=== PATIENT | female | born 1990 | race Caucasian/White ===

== ENCOUNTER 2017-04-10 22:19 | Inpatient (IN) | payer BC, OTHER ==
[~2017-04-10] VITALS: Ht 165.1 cm; Wt 52.0 kg
[2017-04-10 23:02] LABS: MEAN CORPUSCULAR HEMOGLOBIN 29.6 pg (27.0-33.0); MEAN CORPUSCULAR HGB CONC 33.6 g/dl (32.0-36.5); MEAN CORPUSCULAR VOLUME 88.2 fl (80.0-96.0); RED CELL DISTRIBUTION WIDTH 11.9 % (11.5-14.5); WHITE BLOOD COUNT 8.3 10^3/uL (4.0-10.0)
[2017-04-10 23:13] LABS: CONTROL LINE HCG INT CTR LINE PRESENT
[2017-04-10 23:18] LABS: METHADONE URINE NEGATIVE (NEGATIVE)
[2017-04-10 23:29] LABS: ALBUMIN 3.8 GM/DL (3.2-5.2); ALBUMIN/GLOBULIN RATIO 1.15 (1.00-1.93); ALKALINE PHOSPHATASE 57 U/L (45-117); ALT/SGPT 17 U/L (12-78); ANION GAP 5 MEQ/L (8-16); AST/SGOT 9 U/L (15-37); BILIRUBIN,DIRECT 0.2 MG/DL (0.0-0.2); BILIRUBIN,TOTAL 0.5 MG/DL (0.2-1.0); BLOOD UREA NITROGEN 18 MG/DL (7-18); CALCIUM LEVEL 8.8 MG/DL (8.5-10.1); CARBON DIOXIDE LEVEL 34 MEQ/L (21-32); CHLORIDE LEVEL 100 MEQ/L (98-107); CREATININE FOR GFR 1.11 MG/DL (0.55-1.02); GLOMERULAR FILTRATION RATE > 60.0 (>60); GLUCOSE, FASTING 74 MG/DL (70-105); POTASSIUM SERUM 3.8 MEQ/L (3.5-5.1); SODIUM LEVEL 139 MEQ/L (136-145); TOTAL PROTEIN 7.1 GM/DL (6.4-8.2)
[2017-04-11] MEDS ORDERED: ACETAMINOPHEN TAB 650MG DOSE (2X325MG) PO PRN (01:00)
[2017-04-11] MEDS ORDERED: MAALOX 30 ML SUSP *UDC PO PRN (01:00)
[2017-04-11] MEDS ORDERED: MOM 30ML SUSPENSION UDC PO PRN (01:00)
[2017-04-11] MEDS: NICOTINE 21MG/24HR 1 EA TRANSDERMAL TD SCH (08:56)
--- NOTE | 2017-04-11 10:05 | HPEPDOC ---
[facility] Medical History & Physical Date of Admission Apr 10, 2017 History and Physical PCP: Dr Moore ATTENDING: Dr. Dixon Marquez HPI: 26yoF admitted to [facility] for polysubstance use, being medically examined today. No acute medical complaints today. Denies any fevers, chills, weakness, fatigue, SANTOYO, CP, SOB, cough, palpitations, abdominal pain, N/V/D or changes in bowel or bladder habits. PMHx: polysubstance use PSHX: tonsillectomy SOCHX: Resides in: [facility] Marital Status: single Kids: 2 Employment: unemployed Tobacco use: 07/05 ppd ETOH: denies Illicit Drugs: Pt states heroin, marijuana. IV Drug Use: Pt states heroin 5 bags per day Tattoos done unprofessionally: Denies FAMHX: Mother: Alive, DM Father: Alive, unknown Siblings: Alive, DM Children: Alive, well Unexpected deaths due to medical reasons: None. ROS: As noted in HPI, otherwise 11pt ROS of systems reviewed and remarkable only for LMP unknown. PE: GEN: 26yoF, appears stated age. Well-nourished, well developed. No acute distress. Alert and oriented x 3. Pleasant, interactive. HEENT: Normocephalic, atraumatic. Pupils are equal, round, and reactive to light. Extraocular movements are intact. No nystagmus appreciated. Sclera are nonicteric. Conjunctiva without injection. Nose midline. Nasal turbinates without bogginess. EACs both patent BL. TMs both visualized and hansen with good cone of light, no bulging or erythema. No facial asymmetry. Moist mucous membranes. Dentition fair. Pharynx pink and moist, no cobblestoning. Neck supple , trachea midline. No lymphadenopathy or thyromegaly appreciated. CHEST: Regular rate and rhythm, +S1, +S2 LUNGS: Clear to auscultation bilaterally. No wheezes, rales, or rhonchi. Breathing appears symmetric and easy. Patient is speaking in full sentences. No accessory muscle use. ABD: Round, soft, non-tender, non-distended. +Bowel sounds throughout. No rebound or guarding. No costovertebral angle tenderness. EXT: Pulses 2+ bilaterally dorsalis pedis and radial. No lower extremity edema appreciated. SKIN: [place], dry, warm. Capillary refill <2sec. No rashes. NEURO: Alert and oriented x 3. Cranial nerves III-XII are intact. No focal deficits appreciated. EKG: pending. A&P: 26yoF admitted to [facility] for polysubstance use 1. Psych. Plan per Psychiatry. Obtain baseline EKG to assure the safety of psychiatric medications as they can prolong the QT interval. 2. Nicotine dependence. Patch available. 3. H/O IVDU. Pt agrees to HIV/Hepatitis screening. 4. Follow up with PCP on discharge. 5. Substance use. Per psychiatry. Staff member Madyson VIVEROS present throughout exam. Vital Signs Vital Signs Date Time Temp Pulse Resp B/P (MAP) Pulse Ox O2 Delivery O2 Flow Rate FiO2 04/11/17 00:00 98.9 63 18 94/55 (68) 100 Room Air Laboratory Data Labs 24H Laboratory Tests 2 04/10/17 22:39: Anion Gap 5L, Glomerular Filtration Rate > 60.0, Calcium Level 8.8, Aspartate Amino Transf (AST/SGOT) 9L, Alanine Aminotransferase (ALT/SGPT) 17, Alkaline Phosphatase 57, Total Bilirubin 0.5, Direct Bilirubin 0.2, Total Protein 7.1, Albumin 3.8, Albumin/Globulin Ratio 1.15, Thyroid Stimulating Hormone (TSH) 0.657, Human Chorionic Gonadotropin, Qual NEGATIVE, Salicylates Level < 1.7L, Urine Amphetamines Screen POSITIVEH, Urine Benzodiazepines Screen NEGATIVE, Urine Opiates Screen POSITIVEH, Urine Methadone Screen NEGATIVE, Acetaminophen Level < 2.0L, Urine Barbiturates Screen NEGATIVE, Urine Phencyclidine Screen NEGATIVE, Urine Cocaine Metabolite Screen POSITIVEH, Urine Cannabinoids Screen POSITIVEH, Ethyl Alcohol Level < 0.003 CBC/BMP Laboratory Tests 04/10/17 22:39 Red Blood Count 5.17, Mean Corpuscular Volume 88.2, Mean Corpuscular Hemoglobin 29.6, Mean Corpuscular Hemoglobin Concent 33.6, Red Cell Distribution Width 11.9 Home Medications No Active Prescriptions or Reported Meds Allergies Uncoded Allergies: N (Allergy, Unknown, 01/07/03) PCN-HIVES (Allergy, Unknown, 01/07/03) Inés Calle Apr 11, 2017 10:05
[2017-04-11 11:17] LABS: ANION GAP 6 MEQ/L (8-16); BLOOD UREA NITROGEN 14 MG/DL (7-18); CALCIUM LEVEL 8.9 MG/DL (8.5-10.1); CARBON DIOXIDE LEVEL 31 MEQ/L (21-32); CHLORIDE LEVEL 102 MEQ/L (98-107); CREATININE FOR GFR 0.84 MG/DL (0.55-1.02); GLOMERULAR FILTRATION RATE > 60.0 (>60); GLUCOSE, FASTING 82 MG/DL (70-105); POTASSIUM SERUM 4.5 MEQ/L (3.5-5.1); SODIUM LEVEL 139 MEQ/L (136-145)
[2017-04-11] MEDS ORDERED: METHADONE 10 MG TAB (S0109) PO ONE ×2 (14:00→21:00)
[2017-04-11] MEDS ORDERED: hydrOXYzine 25 MG TAB PO PRN (14:00)
[2017-04-11] MEDS: ESCITALOPRAM OXALATE 10 MG TAB (LEXAPRO) PO SCH (14:14)
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
--- NOTE | 2017-04-11 16:46 | ECGEPIP ---
Stationary ECG Study [facility] Test Date: 2017-04-11 Pat Name: KODY MESSINA Department: Room: [place] [address] Gender: F Shipyard Helper: : 1990 Requested By: Inés Calle Order Number: [id number] Reading MD: Cayla Oreilly Measurements Intervals [place] Rate: 59 P: 74 GA: 141 QRS: 93 QRSD: 89 T: 54 QT: 380 QTc: 378 Interpretive Statements SINUS BRADYCARDIA WITH SINUS ARRHYTHMIA BORDERLINE RIGHT AXIS DEVIATION PRWP Electronically Signed On 04-11-2017 16:45:51 EDT by Cayla Oreilly
[2017-04-11 18:00] VITALS: BP 107/57
[2017-04-12 06:52] VITALS: BP 101/52
[2017-04-12] MEDS: ESCITALOPRAM OXALATE 10 MG TAB (LEXAPRO) PO SCH (08:14)
[2017-04-12] MEDS: NICOTINE 21MG/24HR 1 EA TRANSDERMAL TD SCH (08:15)
[2017-04-12] MEDS ORDERED: METHADONE 10 MG TAB (S0109) PO ONE ×2 (09:00→21:00)
--- NOTE | 2017-04-12 11:16 | MHIPNPDOC ---
[facility] Progress Note Progress Note DATE OF SERVICE: 04/12/17 HISTORY: day 2 of admission for substance abuse with homelessness and desire to go to rehab. VITAL SIGNS: See below. NEW TEST RESULTS: na CURRENT MEDICATIONS: See below. MENTAL STATUS EXAMINATION: General appearance: Patient is a 26-year old female, who is petite, multiple lip and ear piercings, pink tint to light colored hair, tattoos on arm, hospital attire, acne. Speech: spontaneous, very weak voice Thought processes: goal directed Thought content: appropriate Abstract reasoning and computation: good Description of associations: good. Description of abnormal or psychotic thoughts: no psychotic symptoms illicited, wishes she were some times but denies a plan. Denies being suicidal before , denies prior suicide attempts Judgment: poor. Insight: fair Orientation: oriented x 4 Recent and remote memory:appears intact. Attention span and concentration: fair. Fund of knowledge: full. Mood: "depressed" Affect: congruent DIAGNOSES: 1. Depressive disorder, unspecified 2. Substance use disorder 3. r/o substance induced mood disorder ASSESSMENT:pt attended treatment planning session and participated this morning. She remains depressed and anxious. she is tolerating methadone for detox purposes. No side effects. Continues to have some cold sweats and nausea but feels well enough to attend a group this morning. Positive reinforcement for this. Later in day observed in lounge interacting with female peers. Appeared at ease. After p.m. group observed sleeping in room. MANAGEMENT PLAN: referral to rehab to be done today. TIME SPENT: 15 minutes. Vital Signs Vital Signs Date Time Temp Pulse Resp B/P (MAP) Pulse Ox O2 Delivery O2 Flow Rate FiO2 04/12/17 09:37 16 04/12/17 06:52 96.8 52 101/52 (68) Room Air 04/11/17 00:00 100 Current Medications Current Medications Acetaminophen (Tylenol Tab) 650 mg Q6HP PRN PO HEADACHE or DISCOMFORT; Start 04/11/17 at 01:00; Stop 05/11/17 at 00:59 Al Hydrox/Mg Hydrox/Simethicone (Mylanta) 30 ml Q4HP PRN PO HEARTBURN/ INDIGESTION; Start 04/11/17 at 01:00; Stop 05/11/17 at 00:59 Escitalopram Oxalate (Lexapro) 10 mg DAILY PO Last administered on 04/12/17 08:14; Start 04/11/17 at 09:00; Stop 05/11/17 at 08:59 Home Med (Med Rec Complete!) ASDIRECTED XX ; Start 04/11/17 at 00:15; Stop 04/11/17 at 00:15; Status DC Hydroxyzine HCl (Atarax) 25 mg Q6HP PRN PO ANXIETY; Start 04/11/17 at 14:00; Stop 05/11/17 at 13:59 Magnesium Hydroxide (Milk Of Magnesia) 30 ml DAILYPRN PRN PO CONSTIPATION; Start 04/11/17 at 01:00; Stop 05/11/17 at 00:59 Nicotine (Nicoderm Cq 21mg) 1 patch DAILY TD Last administered on 04/12/17 08 :15; Start 04/11/17 at 09:00; Stop 05/11/17 at 08:59 Trazodone HCl (Desyrel) 50 mg QHSP PRN PO INSOMNIA; Start 04/11/17 at 01:00; Stop 05/11/17 at 00:59 Allergies Coded Allergies: Penicillins (Unverified Allergy, Intermediate, HIVES, 04/11/17) Eli Gardner Apr 12, 2017 11:16
[2017-04-12 18:00] VITALS: BP 107/51
[2017-04-12] MEDS: traZODone 50 MG TAB PO PRN (21:20)
[2017-04-13 06:00] VITALS: BP 102/69
[2017-04-13] MEDS: ESCITALOPRAM OXALATE 10 MG TAB (LEXAPRO) PO SCH (08:09)
[2017-04-13] MEDS: NICOTINE 21MG/24HR 1 EA TRANSDERMAL TD SCH (08:09)
[2017-04-13] MEDS ORDERED: INFLUENZA QUADRIVALENT PF VACCINE 0.5ML SYRINGE (90686) IM ONE (09:00)
[2017-04-13] MEDS ORDERED: METHADONE 10 MG TAB (S0109) PO ONE (14:00)
--- NOTE | 2017-04-13 15:34 | MHIPNPDOC ---
[facility] Progress Note Progress Note DATE OF SERVICE: 04/13/17 HISTORY: day 3 of admission for substance abuse and desire to . VITAL SIGNS: See below. NEW TEST RESULTS: na CURRENT MEDICATIONS: See below. MENTAL STATUS EXAMINATION: General appearance: Patient is a 26-year old female, who is petite, multiple lip and ear piercings, pink tint to light colored hair, tattoos on arm, hospital attire, acne. Speech: spontaneous, very weak voice Thought processes: goal directed Thought content: appropriate Abstract reasoning and computation: good Description of associations: good. Description of abnormal or psychotic thoughts: no psychotic symptoms illicited, wishes she were some times but denies a plan. Denies being suicidal before , denies prior suicide attempts Judgment: poor. Insight: fair Orientation: oriented x 4 Recent and remote memory:appears intact. Attention span and concentration: fair. Fund of knowledge: full. Mood: "depressed" Affect: congruent DIAGNOSES: 1. Depressive disorder, unspecified 2. Substance use disorder 3. r/o substance induced mood disorder ASSESSMENT:pt continues detox with help of methadone. pt using numerous substances prior to admission. Is doing better compared to earlier in the week. observed in the milieu with female peers. Hugiene is adequate. pt not feeling well when sign writer letterer or painter attempted to engage in 1:1. She wanted to rest. Tolerating medications. Methadone taper in process. MANAGEMENT PLAN: continue to monitor VS, safety and administer meds as prescribed. Enc pt to participate in therapeutic programming. provide support. Referrals all placed and we are awaiting result for a bed for rehab for Tatiana. TIME SPENT: 15 minutes. Vital Signs Vital Signs Date Time Temp Pulse Resp B/P (MAP) Pulse Ox O2 Delivery O2 Flow Rate FiO2 04/13/17 14:32 16 04/13/17 06:00 98.5 50 102/69 (80) 04/12/17 06:52 Room Air 04/11/17 00:00 100 Current Medications Current Medications Acetaminophen (Tylenol Tab) 650 mg Q6HP PRN PO HEADACHE or DISCOMFORT Last administered on 04/13/17t 12:25; Start 04/11/17 at 01:00; Stop 05/11/17 at 00: 59 Al Hydrox/Mg Hydrox/Simethicone (Mylanta) 30 ml Q4HP PRN PO HEARTBURN/ INDIGESTION; Start 04/11/17 at 01:00; Stop 05/11/17 at 00:59 Escitalopram Oxalate (Lexapro) 10 mg DAILY PO Last administered on 04/13/17 08:09; Start 04/11/17 at 09:00; Stop 05/11/17 at 08:59 Home Med (Med Rec Complete!) ASDIRECTED XX ; Start 04/11/17 at 00:15; Stop 04/11/17 at 00:15; Status DC Hydroxyzine HCl (Atarax) 25 mg Q6HP PRN PO ANXIETY; Start 04/11/17 at 14:00; Stop 05/11/17 at 13:59 Magnesium Hydroxide (Milk Of Magnesia) 30 ml DAILYPRN PRN PO CONSTIPATION; Start 04/11/17 at 01:00; Stop 05/11/17 at 00:59 Methadone HCl (Dolophine) 5 mg BID PO ; Start 04/14/17 at 09:00; Stop at 21:01 Methadone HCl (Dolophine) 5 mg QAM PO ; Start 04/15/17 at 09:00; Stop at 09:01 Methadone HCl (Dolophine) 10 mg QHS PO ; Start 04/13/17 at 21:00; Stop at 21:01 Nicotine (Nicoderm Cq 21mg) 1 patch DAILY TD Last administered on 04/13/17 08 :09; Start 04/11/17 at 09:00; Stop 05/11/17 at 08:59 Trazodone HCl (Desyrel) 50 mg QHSP PRN PO INSOMNIA Last administered on 21:20; Start 04/11/17 at 01:00; Stop 05/11/17 at 00:59 Allergies Coded Allergies: Penicillins (Unverified Allergy, Intermediate, HIVES, 04/11/17) Eli Gardner Apr 13, 2017 15:34
[2017-04-13 18:00] VITALS: BP 98/58
[2017-04-13] MEDS ORDERED: METHADONE 10 MG TAB (S0109) PO SCH (21:00)
[2017-04-13] MEDS: traZODone 50 MG TAB PO PRN (21:53)
[2017-04-14 06:33] VITALS: BP 80/45
[2017-04-14 08:20] VITALS: BP 98/51
[2017-04-14] MEDS: ESCITALOPRAM OXALATE 10 MG TAB (LEXAPRO) PO SCH (08:35)
[2017-04-14] MEDS: NICOTINE 21MG/24HR 1 EA TRANSDERMAL TD SCH (08:35)
[2017-04-14] MEDS: METHADONE 5 MG TAB (S0109) PO SCH ×2 (08:35→21:14)
--- NOTE | 2017-04-14 13:38 | MHIPNPDOC ---
[facility] Progress Note Progress Note DATE OF SERVICE: 04/14/17 HISTORY: day 4 of admission for depression and polysubstance abuse. VITAL SIGNS: See below. NEW TEST RESULTS: na CURRENT MEDICATIONS: See below. MENTAL STATUS EXAMINATION: General appearance: Patient is a 26-year old female, who is petite, multiple lip and ear piercings, pink tint to light colored hair, tattoos on arm, hospital attire, acne. Speech: spontaneous Thought processes: goal directed Thought content: appropriate Abstract reasoning and computation: good Description of associations: good. Description of abnormal or psychotic thoughts: no psychotic symptoms illicited, no suicidal plan or intent. Judgment: poor. Insight: fair Orientation: oriented x 4 Recent and remote memory:appears intact. Attention span and concentration: fair. Fund of knowledge: full. Mood: depressed Affect: flat, constricted DIAGNOSES: 1. Depressive disorder, unspecified 2. Substance use disorder 3. r/o substance induced mood disorder ASSESSMENT:pt continues to have some difficulty with withdrawal. Methadone is being tapered and remains helpful. Pt has concerns about her housing post discharge and has no where to go at this time. She is visible in the milieu and is attending programming. She is making an effort to improve her situation and seems sincere in her motivation. Mood remains low and self-esteem is poor. MANAGEMENT PLAN: no immediate bed access at [facility] or [facility]. Still waiting for other 3 referrals. Pt needs housing needs addressed and requested assistance in regard to attending the residency program at [facility]. TIME SPENT: 25 minutes. Vital Signs Vital Signs Date Time Temp Pulse Resp B/P (MAP) Pulse Ox O2 Delivery O2 Flow Rate FiO2 04/14/17 08:35 98.3 60 16 100/56 100 Room Air Current Medications Current Medications Acetaminophen (Tylenol Tab) 650 mg Q6HP PRN PO HEADACHE or DISCOMFORT Last administered on 04/13/17 12:25; Start 04/11/17 at 01:00; Stop 05/11/17 at 00: 59 Al Hydrox/Mg Hydrox/Simethicone (Mylanta) 30 ml Q4HP PRN PO HEARTBURN/ INDIGESTION; Start 04/11/17 at 01:00; Stop 05/11/17 at 00:59 Escitalopram Oxalate (Lexapro) 10 mg DAILY PO Last administered on 04/14/17 08:35; Start 04/11/17 at 09:00; Stop 05/11/17 at 08:59 Home Med (Med Rec Complete!) ASDIRECTED XX ; Start 04/11/17 at 00:15; Stop 04/11/17 at 00:15; Status DC Hydroxyzine HCl (Atarax) 25 mg Q6HP PRN PO ANXIETY; Start 04/11/17 at 14:00; Stop 05/11/17 at 13:59 Magnesium Hydroxide (Milk Of Magnesia) 30 ml DAILYPRN PRN PO CONSTIPATION; Start 04/11/17 at 01:00; Stop 05/11/17 at 00:59 Methadone HCl (Dolophine) 5 mg BID PO Last administered on 04/14/17 08:35; Start 04/14/17 at 09:00; Stop 04/14/17 at 21:01 Methadone HCl (Dolophine) 5 mg QAM PO ; Start 04/15/17 at 09:00; Stop at 09:01 Methadone HCl (Dolophine) 10 mg QHS PO Last administered on 04/13/17 21:53; Start 04/13/17 at 21:00; Stop 04/13/17 at 21:01; Status DC Nicotine (Nicoderm Cq 21mg) 1 patch DAILY TD Last administered on 04/14/17 08 :35; Start 04/11/17 at 09:00; Stop 05/11/17 at 08:59 Trazodone HCl (Desyrel) 50 mg QHSP PRN PO INSOMNIA Last administered on 21:53; Start 04/11/17 at 01:00; Stop 05/11/17 at 00:59 Allergies Coded Allergies: Penicillins (Unverified Allergy, Intermediate, HIVES, 04/11/17) Eli Gardner Apr 14, 2017 13:38
[2017-04-14 18:53] VITALS: BP 100/60
[2017-04-14] MEDS: traZODone 50 MG TAB PO PRN (21:13)
[2017-04-15 07:13] VITALS: BP 95/53
[2017-04-15] MEDS: ESCITALOPRAM OXALATE 10 MG TAB (LEXAPRO) PO SCH (08:27)
[2017-04-15] MEDS: NICOTINE 21MG/24HR 1 EA TRANSDERMAL TD SCH (08:27)
[2017-04-15] MEDS ORDERED: METHADONE 5 MG TAB (S0109) PO SCH (09:00)
--- NOTE | 2017-04-15 09:34 | MHIPNPDOC ---
[facility] Progress Note Progress Note DATE OF SERVICE: 04/15/17 HISTORY: day 5 of admission for depression and substance use disorder VITAL SIGNS: See below. NEW TEST RESULTS: na CURRENT MEDICATIONS: See below. MENTAL STATUS EXAMINATION: General appearance: Patient is a 26-year old female, who is petite, multiple lip and ear piercings, pink tint to light colored hair, tattoos on arm, hospital attire, acne. Speech: spontaneous Thought processes: goal directed Thought content: appropriate Abstract reasoning and computation: good Description of associations: good. Description of abnormal or psychotic thoughts: no psychotic symptoms illicited, no suicidal plan or intent. Judgment: poor. Insight: fair Orientation: oriented x 4 Recent and remote memory:appears intact. Attention span and concentration: fair. Fund of knowledge: full. Mood: depressed Affect: flat, constricted DIAGNOSES: 1. Depressive disorder, unspecified 2. Substance use disorder 3. r/o substance induced mood disorder ASSESSMENT:A bed has been offered at [facility] on Tuesday for this patient. We will happily accept it and support her efforts to become drug free. Will continue meds and instruct pt not to stop meds after rehab. Pt is expressing healthy thoughts and a desire to change her life and raise her children. We will give her all the support we can. Pt is doing well on the unit, cooperative with therapeutic group attendance, gets along well with peers and staff. It was reported that staff observed the pt having apnea while sleeping in her room yesterday. She has been instructed to request a sleep study referral. Tatiana requested to have her mother transport her to rehab. Request denied. Explained the last person who did that failed to show up at rehab and contract technical writer is not willing to risk that happening to Tatiana. She reports adequate sleep and appetite and appears to have completed the physical withdrawal from substances. MANAGEMENT PLAN: research housing options for pt after rehab. Establish aftercare for her psychiatric needs by referral to outpatient MH. Pt needs PCP referral and a referral for sleep study after rehab. TIME SPENT: 25 minutes. Vital Signs Vital Signs Date Time Temp Pulse Resp B/P (MAP) Pulse Ox O2 Delivery O2 Flow Rate FiO2 04/15/17 08:28 16 04/15/17 07:13 97.2 59 95/53 (67) 04/14/17 08:35 100 Room Air Current Medications Current Medications Acetaminophen (Tylenol Tab) 650 mg Q6HP PRN PO HEADACHE or DISCOMFORT Last administered on 04/13/17 12:25; Start 04/11/17 at 01:00; Stop 05/11/17 at 00: 59 Al Hydrox/Mg Hydrox/Simethicone (Mylanta) 30 ml Q4HP PRN PO HEARTBURN/ INDIGESTION; Start 04/11/17 at 01:00; Stop 05/11/17 at 00:59 Escitalopram Oxalate (Lexapro) 10 mg DAILY PO Last administered on 04/14/17 08:35; Start 04/11/17 at 09:00; Stop 04/14/17 at 14:25; Status DC Escitalopram Oxalate (Lexapro) 20 mg DAILY PO Last administered on 04/15/17 08:27; Start 04/15/17 at 09:00; Stop 05/15/17 at 08:59 Home Med (Med Rec Complete!) ASDIRECTED XX ; Start 04/11/17 at 00:15; Stop 04/11/17 at 00:15; Status DC Hydroxyzine HCl (Atarax) 25 mg Q6HP PRN PO ANXIETY; Start 04/11/17 at 14:00; Stop 05/11/17 at 13:59 Magnesium Hydroxide (Milk Of Magnesia) 30 ml DAILYPRN PRN PO CONSTIPATION; Start 04/11/17 at 01:00; Stop 05/11/17 at 00:59 Methadone HCl (Dolophine) 5 mg BID PO Last administered on 04/14/17 21:14; Start 04/14/17 at 09:00; Stop 04/14/17 at 21:01; Status DC Methadone HCl (Dolophine) 5 mg QAM PO Last administered on 04/15/17 08:28; Start 04/15/17 at 09:00; Stop 04/15/17 at 09:01; Status DC Methadone HCl (Dolophine) 10 mg QHS PO Last administered on 04/13/17 21:53; Start 04/13/17 at 21:00; Stop 04/13/17 at 21:01; Status DC Nicotine (Nicoderm Cq 21mg) 1 patch DAILY TD Last administered on 04/15/17 08 :27; Start 04/11/17 at 09:00; Stop 05/11/17 at 08:59 Trazodone HCl (Desyrel) 50 mg QHSP PRN PO INSOMNIA Last administered on t 21:13; Start 04/11/17 at 01:00; Stop 05/11/17 at 00:59 Allergies Coded Allergies: Penicillins (Unverified Allergy, Intermediate, HIVES, 04/11/17) Eli Gardner Apr 15, 2017 09:34
[2017-04-15 18:00] VITALS: BP 91/53
[2017-04-15] MEDS: traZODone 50 MG TAB PO PRN (21:38)
[2017-04-16 07:08] VITALS: BP 96/51
[2017-04-16] MEDS: ESCITALOPRAM OXALATE 10 MG TAB (LEXAPRO) PO SCH (08:13)
[2017-04-16] MEDS: NICOTINE 21MG/24HR 1 EA TRANSDERMAL TD SCH (08:14)
[2017-04-16 18:00] VITALS: BP 106/56
[2017-04-17 07:15] VITALS: BP 98/56
[2017-04-17] MEDS: ESCITALOPRAM OXALATE 10 MG TAB (LEXAPRO) PO SCH (08:13)
[2017-04-17] MEDS: NICOTINE 21MG/24HR 1 EA TRANSDERMAL TD SCH (08:14)
[2017-04-17 18:00] VITALS: BP 110/50
[2017-04-17] MEDS: traZODone 50 MG TAB PO PRN (22:30)
[2017-04-18 06:42] VITALS: BP 123/57
[2017-04-18] MEDS ORDERED: TRAZO50TA PO (08:22)
[2017-04-18] MEDS ORDERED: ESCI10TA2 PO (08:22)
[2017-04-18] MEDS ORDERED: NICO21PAT TD (08:22)
[2017-04-18] MEDS ORDERED: HYDR-3363 PO (08:22)
[2017-04-18] MEDS: NICOTINE 21MG/24HR 1 EA TRANSDERMAL TD SCH (08:35)
[2017-04-18] MEDS: ESCITALOPRAM OXALATE 10 MG TAB (LEXAPRO) PO SCH (08:35)
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
== END 2017-04-18 09:10 | DRG 754 ==
LOC: M ED 22:19 → M ED INP 04-11 00:55 → M PSY 04-11 01:15
PROVIDERS: ADMIT Psychiatry & Neurology Psychiatry; ATTEND Psychiatry & Neurology Psychiatry
DX: F32.9 Major depressive disorder, single episode, unspecified (principal); F11.10 Opioid abuse, uncomplicated; F19.94 Other psychoactive substance use, unspecified with psychoactive substance-induced mood disorder; Z88.0 Allergy status to penicillin; Z79.899 Other long term (current) drug therapy; F17.200 Nicotine dependence, unspecified, uncomplicated